=== PATIENT | female | born 1965 | race African-American/Black ===

== ENCOUNTER 2017-04-27 18:12 | Emergency (ER) | payer OTHER ==
[~2017-04-27] VITALS: Ht 162.6 cm; Wt 65.8 kg
[2017-04-27 19:22] LABS: BASO # 0.1 x10^3/uL (0.0-0.2); BASO % 1 % (0-3); EOS % 3 % (0-3); HEMATOCRIT 34.2 % (36.0-47.0); HEMOGLOBIN 10.7 g/dL (12.0-15.5); LYMPH # 3.4 x10^3/uL (1.0-4.8); LYMPH % 38 % (24-48); MEAN CORPUSCULAR HEMOGLOBIN 20 pg (25-35); MEAN CORPUSCULAR HGB CONC 31 g/dL (31-37); MEAN CORPUSCULAR VOLUME 63 fL (79-100); MONO % 8 % (0-9); NEUT % 51 % (31-73); PLATELET COUNT 236 x10^3/uL (140-400); RED CELL DISTRIBUTION WIDTH 15.4 % (11.5-14.5); WHITE BLOOD COUNT 9.1 x10^3/uL (4.0-11.0)
--- NOTE | 2017-04-27 19:36 | ED.ADGEN ---
Past Medical History Past Medical History: Hypertension Past Surgical History: Hysterectomy Alcohol Use: None Drug Use: None Adult General Chief Complaint Chief Complaint: ABNORMAL LABS HPI HPI Patient is a 51 year old woman, with history of hypertension, for which she takes triamterene hydrochlorothiazide, who takes potassium daily, who presents to the emergency department with report of hypokalemia. Patient states that she was seen by her primary care provider, Dr. Suero, and also by Dr. Valenzuela of neurology, due to complaint of soreness and cramping in her upper extremities. She states that she had basic laboratory studies performed, and was called and told that her potassium was critically low when she did come to the ED immediately for evaluation. Patient states that she is having some cramping in the upper fremitus, and some soreness, which is unchanged as in going on for several weeks to several months. She denies any new or different symptoms, any chest pain, shortness breath, any generalized weakness, any cramping in her extremities. She she will occasionally experience swelling in her left foot, but none currently. No nausea or vomiting, no focal weakness, numbness or tingling, no injuries, she states that she has been compliant with her medications, and was started on gabapentin today and has taken one dose so far. Review of Systems Review of Systems Constitutional: Denies fever or chills. [] Eyes: Denies change in visual acuity. [] HENT: Denies nasal congestion or sore throat. [] Respiratory: Denies cough or shortness of breath. [] Cardiovascular: Denies chest pain or edema. [] GI: Denies abdominal pain, nausea, vomiting, bloody stools or diarrhea. [] : Denies dysuria. [] Musculoskeletal: Denies back pain or joint pain. [Soreness in the upper extremities. Cramping. Integument: Denies rash. [] Neurologic: Denies headache, focal weakness or sensory changes. [] Endocrine: Denies polyuria or polydipsia. [] Lymphatic: Denies swollen glands. [] Psychiatric: Denies depression or anxiety. [] Current Medications Current Medications Current Medications Medications (Trade) Dose Ordered Sig/Sammy Start Time Stop Time Status Last Admin Dose Admin Potassium Chloride (KCl Oral Soln) 40 meq 1X ONCE 04/27/17 20:00 04/27/17 20:18 DC 04/27/17 20:27 40 MEQ Allergies Allergies Allergies Coded Allergies Type Severity Reaction Last Updated Verified No Known Drug Allergies 04/27/17 No Physical Exam Physical Exam Constitutional: Well developed, well nourished, no acute distress, non-toxic appearance. [] HENT: Normocephalic, atraumatic, bilateral external ears normal, oropharynx moist, no oral exudates, nose normal. [] Eyes: PERRLA, EOMI, conjunctiva normal, no discharge. [] Neck: Normal range of motion, no tenderness, supple, no stridor. [] Cardiovascular:Heart rate regular rhythm, no murmur, S1, S2, no rubs or gallops. [] Lungs & Thorax: Bilateral breath sounds clear to auscultation, no wheezing, rhonchi, rales. No chest or crepitus or tenderness. [] Abdomen: Bowel sounds normal, soft, no rebound, rigidity, no guarding, no tenderness, no masses, no pulsatile masses. [] Skin: Warm, dry, no erythema, no rash. [] Back: No tenderness, no CVA tenderness. [] Extremities: No tenderness, no cyanosis, no clubbing, ROM intact, no edema. Negative Homans sign.[] Neurologic: Alert and oriented X 3, normal motor function, normal sensory function, no focal deficits noted. [] Psychologic: Affect normal, judgement normal, mood normal. [] Current Patient Data Vital Signs Vital Signs Date Time Temp Pulse Resp B/P (MAP) Pulse Ox O2 Delivery O2 Flow Rate FiO2 04/27/17 20:50 80 18 160/92 (114) 99 Room Air 04/27/17 18:20 97.7 97.7 Lab Values Laboratory Tests Test 04/27/17 19:15 White Blood Count 9.1 x10^3/uL (4.0-11.0) Red Blood Count 5.40 x10^6/uL (3.50-5.40) Hemoglobin 10.7 g/dL (12.0-15.5) L Hematocrit 34.2 % (36.0-47.0) L Mean Corpuscular Volume 63 fL (79-100) L Mean Corpuscular Hemoglobin 20 pg (25-35) L Mean Corpuscular Hemoglobin Concent 31 g/dL (31-37) Red Cell Distribution Width 15.4 % (11.5-14.5) H Platelet Count 236 x10^3/uL (140-400) Neutrophils (%) (Auto) 51 % (31-73) Lymphocytes (%) (Auto) 38 % (24-48) Monocytes (%) (Auto) 8 % (0-9) Eosinophils (%) (Auto) 3 % (0-3) Basophils (%) (Auto) 1 % (0-3) Neutrophils # (Auto) 4.6 x10^3uL (1.8-7.7) Lymphocytes # (Auto) 3.4 x10^3/uL (1.0-4.8) Monocytes # (Auto) 0.7 x10^3/uL (0.0-1.1) Eosinophils # (Auto) 0.3 x10^3/uL (0.0-0.7) Basophils # (Auto) 0.1 x10^3/uL (0.0-0.2) Platelet Estimate Adequate (ADEQUATE) Hypochromasia Marked Poikilocytosis Slight Basophilic Stippling Present Anisocytosis Slight Microcytosis Marked Target Cells Occ Tear Drop Cells Occ Ovalocytes Few Schistocytes Occ Sodium Level 141 mmol/L (136-145) Potassium Level 2.8 mmol/L (3.5-5.1) *L Chloride Level 100 mmol/L (98-107) Carbon Dioxide Level 30 mmol/L (21-32) Anion Gap 11 (6-14) Blood Urea Nitrogen 15 mg/dL (7-20) Creatinine 1.2 mg/dL (0.6-1.0) H Estimated GFR (Cockcroft-Gault) 57.8 BUN/Creatinine Ratio 13 (6-20) Glucose Level 270 mg/dL (70-99) #H Calcium Level 9.1 mg/dL (8.5-10.1) Magnesium Level 1.9 mg/dL (1.8-2.4) Total Bilirubin 0.3 mg/dL (0.2-1.0) Aspartate Amino Transferase (AST) 53 U/L (15-37) H Alanine Aminotransferase (ALT) 92 U/L (14-59) H Alkaline Phosphatase 85 U/L (46-116) Total Protein 8.2 g/dL (6.4-8.2) Albumin 3.6 g/dL (3.4-5.0) Albumin/Globulin Ratio 0.8 (1.0-1.7) L Laboratory Tests 04/27/17 19:15 Laboratory Tests 04/27/17 19:15 EKG EKG EC: Sinus rhythm, heart rate 80 bpm, left axis deviation, QTC of 447, [place] of 232, QRS of 80, no ST elevations or depressions, abnormal ECG, does not meet STEMI criteria. As interpreted by me.[] Radiology/Procedures Radiology/Procedures Not indicated.[] Course & Med Decision Making Course & Med Decision Making Pertinent Labs and Imaging studies reviewed. (See chart for details) Patient well-appearing, no concerning findings on ECG or examination. Repeat laboratory studies obtained, reveal a potassium of 2.8, with a magnesium of 1.9 , other electrolytes and renal function within normal limits. Patient received 40 mEq of potassium in the ED without issue orally. I did speak with Dr. Ingram, on-call for the patient's primary care provider, Dr. Suero, and discussed patient's presentation and evaluation. Patient currently is taking 10 mEq of potassium daily as stated, along with hydrochlorothiazide triamterene She recommends discharging the patient on 40 mEq of potassium daily for 3 days, and having the patient follow-up in the office with Dr. Suero, she recommends the patient continue on her home medications until she is evaluated by Dr. Suero. This was discussed with the patient, who is agreeable this plan. She did tolerate initial oral potassium in the ED without issue, was discharged with prescription for 20 mEq tablets, 2 tablets to be taken once daily for the next 3 days, with follow-up as stated. We did discuss concerning symptoms that prompt return to the ED, patient discharged home in stable condition with plan, prescriptions, precautions as above. Dragon Disclaimer Dragon Disclaimer This electronic medical record was generated, in whole or in part, using a voice recognition dictation system. Departure Impression: Primary Impression: Hypokalemia Disposition: ADMITTED INPATIENT Condition: IMPROVED Scripts Potassium Chloride (POTASSIUM CHLORIDE) 20 Meq Tablet.er 2 TAB PO DAILY for 3 Days, #6 TAB.SR Prov: STEFANIE FONSECA DO 04/27/17 STEFANIE FONSECA DO Apr 27, 2017 19:36
[2017-04-27 19:37] LABS: ALBUMIN 3.6 g/dL (3.4-5.0); ALBUMIN/GLOBULIN RATIO 0.8 (1.0-1.7); CALCIUM 9.1 mg/dL (8.5-10.1); CREATININE 1.2 mg/dL (0.6-1.0); GFR 57.8; MAGNESIUM 1.9 mg/dL (1.8-2.4); TOTAL BILIRUBIN 0.3 mg/dL (0.2-1.0); TOTAL PROTEIN 8.2 g/dL (6.4-8.2)
[2017-04-27 19:55] LABS: POTASSIUM 2.8 mmol/L (3.5-5.1)
[2017-04-27] MEDS ORDERED: POTASSIUM CHLORIDE 20 MEQ/15 ML ORAL LIQUID. PEG ONE (20:00)
[2017-04-27 20:12] LABS: PLT ESTIMATE ADEQUATE (ADEQUATE)
[2017-04-27 20:13] LABS: ANISOCYTOSIS SLIGHT; HYPOCHROMIA MARKED; MICROCYTOSIS MARKED; POIKILOCYTOSIS SLIGHT
[2017-04-27 20:14] LABS: OVALOCYTES FEW; TARGET CELLS OCC; TEAR DROP CELLS OCC
[2017-04-27 20:15] LABS: SCHISTOCYTES OCC
[2017-04-27] MEDS ORDERED: POTA20TA82 PO (20:30)
[2017-04-27 20:50] VITALS: BP 160/92
--- NOTE | 2017-04-28 06:32 | EKG ---
[facility] [address] [place] [address] Test Date: 2017-04-27 Test Time: 18:28:49 Pat Name: DAYNA CHRISTOPHER Department: Room: Gender: F [employer]: : 1965 Requested By: STEFANIE FONSECA Order Number: [id number] Reading MD: Measurements Intervals [place] Rate: 82 P: 39 ID: [id number] QRS: -6 QRSD: 80 T: 23 QT: 380 QTc: 447 Interpretive Statements SINUS RHYTHM PROLONGED ID INTERVAL LEFTWARD AXIS R-S TRANSITION ZONE IN V LEADS DISPLACED TO THE LEFT QRS(T) CONTOUR ABNORMALITY CONSIDER ANTEROLATERAL MYOCARDIAL DAMAGE RI6.01 Unconfirmed report No previous ECG available for comparison
== END 2017-04-27 20:50 | disposition home or self-care (01) ==
LOC: ER 18:12
DX: E87.6 Hypokalemia (principal); I10 Essential (primary) hypertension; Z90.710 Acquired absence of both cervix and uterus
CPT/HCPCS: 36415; 80053; 83735; 85025; 93005; 99285-25

== ENCOUNTER → 2017-04-27 | Outpatient (CLI) | payer OTHER ==
[~2017-04-27] MED LIST: POTA20TA82 PO
[2017-04-27 15:27] LABS: BASO # 0.1 x10^3/uL (0.0-0.2); BASO % 1 % (0-3); EOS % 2 % (0-3); HEMATOCRIT 34.7 % (36.0-47.0); LYMPH # 4.3 x10^3/uL (1.0-4.8); LYMPH % 38 % (24-48); MEAN CORPUSCULAR HEMOGLOBIN 20 pg (25-35); MEAN CORPUSCULAR HGB CONC 32 g/dL (31-37); MEAN CORPUSCULAR VOLUME 62 fL (79-100); MONO % 9 % (0-9); NEUT % 50 % (31-73); PLATELET COUNT 265 x10^3/uL (140-400); RED BLOOD COUNT 5.57 x10^6/uL (3.50-5.40); RED CELL DISTRIBUTION WIDTH 15.4 % (11.5-14.5); WHITE BLOOD COUNT 11.2 x10^3/uL (4.0-11.0)
[2017-04-27 15:50] LABS: ALBUMIN 3.8 g/dL (3.4-5.0); ALBUMIN/GLOBULIN RATIO 0.8 (1.0-1.7); CALCIUM 8.9 mg/dL (8.5-10.1); CREATININE 1.2 mg/dL (0.6-1.0); GFR 57.8; TOTAL BILIRUBIN 0.4 mg/dL (0.2-1.0); TOTAL PROTEIN 8.3 g/dL (6.4-8.2)
[2017-04-27 16:48] LABS: HYPOCHROMIA MARKED; PLT ESTIMATE ADEQUATE (ADEQUATE)
[2017-04-27 16:49] LABS: ANISOCYTOSIS SLIGHT; MICROCYTOSIS MARKED; OVALOCYTES FEW; POIKILOCYTOSIS SLIGHT; SCHISTOCYTES OCC; TARGET CELLS FEW; TEAR DROP CELLS OCC
[2017-04-27 16:57] LABS: POTASSIUM 2.7 mmol/L (3.5-5.1)
== END | disposition home or self-care (01) ==
LOC: LAB 15:06
PROVIDERS: ATTEND Psychiatry & Neurology Neurology
DX: R20.0 Anesthesia of skin (principal)
CPT/HCPCS: 36415; 80053; 82550; 82607; 84443; 85025; 85651

== ENCOUNTER → 2017-05-14 | Outpatient (CLI) | payer OTHER ==
[2017-04-27 20:50] VITALS: BP 160/92
[~2017-05-14] MED LIST changes: +GADOBUTROL 7.5 MMOL/7.5 ML VIAL IV ONE
--- NOTE | 2017-05-14 10:56 | RAD ---
INDICATION: Neck pain with bilateral arm radiculopathy, greater on the left. TECHNIQUE: Sagittal T1, sagittal T2, sagittal STIR, sagittal postcontrast, axial T1, axial T2, axial T2 gradient, and axial postcontrast sequences are provided. 7.5 mL of intravenous Gadavist was administered without complication. No comparison is available. FINDINGS: There is no malalignment. There is no marrow edema. There is no worrisome marrow lesion. There is no cord signal abnormality. The cervicomedullary junction is unremarkable. There is no pathologic enhancement. There is a 7 mm left thyroid nodule. Degenerative findings by individual level are as follows: C2-C3, C3-C4, C4-C5: There is no canal or foraminal compromise. C5-C6: There may be a tiny central protrusion without canal or foraminal compromise. C6-C7: There is a minimal disc bulge without canal or foraminal compromise. C7-T1: There is no canal or foraminal compromise. IMPRESSION: Minimal degenerative changes, greatest at C6-C7. There is no canal or foraminal compromise. Electronically signed by: Coleman Moreno MD (05/14/2017 10:52 AM) [id number]
== END | disposition home or self-care (01) ==
LOC: MRI 08:34
PROVIDERS: ATTEND Psychiatry & Neurology Neurology
DX: M47.892 Other spondylosis, cervical region (principal); M54.12 Radiculopathy, cervical region; R20.2 Paresthesia of skin; R20.0 Anesthesia of skin
CPT/HCPCS: 72156; A9585

== ENCOUNTER → 2019-09-18 | Outpatient (CLI) | payer OTHER ==
[~2019-09-18] MED LIST changes: -GADOBUTROL 7.5 MMOL/7.5 ML VIAL IV ONE; +POTA20TA4 PO; -POTA20TA82 PO
[2019-09-18 10:43] LABS: ALBUMIN 3.5 g/dL (3.4-5.0); ALBUMIN/GLOBULIN RATIO 0.8 (1.0-1.7); C-REACTIVE PROTEIN 3.2 mg/L (0-3.3); CALCIUM 9.6 mg/dL (8.5-10.1); GFR 70.5; POTASSIUM 3.4 mmol/L (3.5-5.1); TOTAL BILIRUBIN 0.3 mg/dL (0.2-1.0); TOTAL PROTEIN 8.1 g/dL (6.4-8.2)
[2019-09-18 10:52] LABS: FREE T4 1.21 ng/dL (0.76-1.46); THYROID STIM HORMONE (TSH) 0.986 uIU/mL (0.358-3.74)
[2019-09-18 11:02] LABS: HEMATOCRIT 35.5 % (36.0-47.0); HEMOGLOBIN 11.3 g/dL (12.0-15.5); RED BLOOD COUNT 5.63 x10^6/uL (3.50-5.40); RED CELL DISTRIBUTION WIDTH 16.4 % (11.5-14.5); WHITE BLOOD COUNT 7.8 x10^3/uL (4.0-11.0)
[2019-09-18 22:07] LABS: HEMOGLOBIN A1C 6.2 % (4.8-5.6)
== END | disposition home or self-care (01) ==
LOC: LAB 10:09
PROVIDERS: ATTEND Family Medicine
DX: E11.9 Type 2 diabetes mellitus without complications (principal); R01.1 Cardiac murmur, unspecified; R93.89 Abnormal findings on diagnostic imaging of other specified body structures
CPT/HCPCS: 36415; 80053; 83036; 84439; 84443; 85027; 85651; 86140

== ENCOUNTER → 2019-12-15 | Outpatient (CLI) | payer OTHER ==
--- NOTE | 2019-12-15 14:51 | CARD ---
MR#: [id number] Date of Study: 12/15/2019 Ordering Physician: SAMMY PRICE, Referring Physician: SAMMY PRICE, Tech: Vita Storm [facility] APPROVED REPORT EXAM: Two-dimensional and M-mode echocardiogram with Doppler and color Doppler. Other Information Quality : Good INDICATION Murmur 2D DIMENSIONS RVDd2.9 (2.9-3.5cm)Left Atrium(2D)3.8 (1.6-4.0cm) IVSd1.2 (0.7-1.1cm)Aortic Root(2D)2.3 (2.0-3.7cm) LVDd4.3 (3.9-5.9cm)LVOT Diameter2.0 (1.8-2.4cm) PWd0.9 (0.7-1.1cm)LVDs2.0 (2.5-4.0cm) FS (%) 30.0 %SV67.9 ml LVEF(%)60.0 (>50%) Aortic Valve AoV Peak Luc.184.9cm/sAoV VTI34.5cm AO Peak GR.13.7mmHgLVOT Peak Luc.178.3cm/s AO Mean GR.7mmHgAVA (VMAX)3.09cm2 NEGAR (VTI)3.40cm2 Mitral Valve MV E Qxvwjzyr456.7cm/sMV DECEL WGRZ380vh MV A Ujvwahha613.4cm/sE/A Ratio1.1 Tricuspid Valve TR P. Mnyyjato549fw/sRAP CAAEZWYF7nqFz TR Peak Gr.71zuIiCWBJ58meTe Pulmonary Vein S1 Vgykbhci42.1cm/sD2 Rzcuwzsi37.1cm/s LEFT VENTRICLE The left ventricle is normal size. There is mild asymmetric septal hypertrophy. The left ventricular systolic function is normal and the ejection fraction is within normal range. The Ejection Fraction i s 55-60%. There is normal LV segmental wall motion. The left ventricular diastolic function and filli ng is normal for age. RIGHT VENTRICLE The right ventricle is normal size. The right ventricular systolic function is normal. ATRIA The left atrium size is normal. The right atrium size is normal. The interatrial septum is intact wit h no evidence for an atrial septal defect or patent foramen ovale as noted on 2-D or Doppler imaging. AORTIC VALVE The aortic valve is normal in structure and function. Doppler and Color Flow revealed no significant aortic regurgitation. There is no significant aortic valvular stenosis. MITRAL VALVE The mitral valve is normal in structure and function. There is no evidence of mitral valve prolapse. There is no mitral valve stenosis. Doppler and Color-flow revealed trace mitral regurgitation. TRICUSPID VALVE The tricuspid valve is normal in structure and function. Doppler and Color Flow revealed trace to mil d tricuspid regurgitation. The PA pressure was estimated at 19 mmHg. There is no tricuspid valve sten osis. PULMONIC VALVE The pulmonary valve is normal in structure and function. Doppler and Color Flow revealed no pulmonic valvular regurgitation. There is no pulmonic valvular stenosis. GREAT VESSELS The aortic root is normal in size. The ascending aorta is normal in size. The IVC is normal in size a nd collapses >50% with inspiration. PERICARDIAL EFFUSION There is no evidence of significant pericardial effusion. Critical Notification Critical Value: No <Conclusion> The left ventricular systolic function is normal and the ejection fraction is within normal range. Th e Ejection Fraction is 55-60%. There is normal LV segmental wall motion. Signed by : Zachariah Pompa, Electronically Approved : 12/15/2019 14:50:54
== END | disposition home or self-care (01) ==
LOC: ECHO 13:43
PROVIDERS: ATTEND Internal Medicine Cardiovascular Disease
DX: I07.1 Rheumatic tricuspid insufficiency (principal)
CPT/HCPCS: 93306

== ENCOUNTER → 2020-09-24 | Outpatient (CLI) | payer OTHER ==
[2020-09-24 16:54] LABS: BASO # 0.1 x10^3/uL (0.0-0.2); BASO % 1 % (0-3); EOS # 0.2 x10^3/uL (0.0-0.7); EOS % 2 % (0-3); HEMATOCRIT 34.9 % (36.0-47.0); HEMOGLOBIN 11.1 g/dL (12.0-15.5); LYMPH # 3.8 x10^3/uL (1.0-4.8); LYMPH % 35 % (24-48); MEAN CORPUSCULAR HEMOGLOBIN 20 pg (25-35); MEAN CORPUSCULAR HGB CONC 32 g/dL (31-37); MEAN CORPUSCULAR VOLUME 63 fL (79-100); MONO # 0.7 x10^3/uL (0.0-1.1); MONO % 6 % (0-9); NEUT % 56 % (31-73); PLATELET COUNT 301 x10^3/uL (140-400); RED BLOOD COUNT 5.55 x10^6/uL (3.50-5.40); RED CELL DISTRIBUTION WIDTH 16.2 % (11.5-14.5); WHITE BLOOD COUNT 10.8 x10^3/uL (4.0-11.0)
[2020-09-24 17:11] LABS: ALBUMIN 3.9 g/dL (3.4-5.0); ALBUMIN/GLOBULIN RATIO 0.9 (1.0-1.7); CALCIUM 8.9 mg/dL (8.5-10.1); CREATININE 1.2 mg/dL (0.6-1.0); GFR 56.9; TOTAL BILIRUBIN 0.4 mg/dL (0.2-1.0); TOTAL PROTEIN 8.4 g/dL (6.4-8.2)
[2020-09-24 17:14] LABS: PLT ESTIMATE ADEQUATE (ADEQUATE)
[2020-09-24 17:15] LABS: ANISOCYTOSIS SLIGHT; HYPOCHROMIA MARKED; MICROCYTOSIS MARKED; OVALOCYTES FEW; POIKILOCYTOSIS SLIGHT; TARGET CELLS PRESENT; TEAR DROP CELLS OCC
[2020-09-24 17:51] LABS: POTASSIUM 2.9 mmol/L (3.5-5.1)
[2020-09-25 07:19] LABS: HEMOGLOBIN A1C 7.1 % (4.8-5.6)
== END ==
LOC: LAB 16:34
PROVIDERS: ATTEND Family Medicine
DX: E11.9 Type 2 diabetes mellitus without complications (principal)
CPT/HCPCS: 36415; 80053; 83036; 85025